=== PATIENT | female | born 1980 | race Caucasian/White ===

== ENCOUNTER 2019-04-12 22:57 | Emergency (ER) | payer BC, MEDICAID ==
[~2019-04-12] VITALS: Ht 190.5 cm; Wt 98.0 kg
[~2019-04-12 22:57] MED LIST: BENZTROPINE MESY1 MG PO; BUSPIRONE HCL10 MG PO; HALOPERIDOL5 MG PO; LAMOTRIGINE100 M1 PO; LATUDA40 M1 PO; LEXAPRO10 MG PO; MAC100 PO; VENTOLIN H0.09 MG/A1 IH
[2019-04-12 23:01] VITALS: Ht 190.5 cm; Wt 98.0 kg
[2019-04-13 02:12] LABS: BASOPHIL % 1.6 % (0-2); PLATELET COUNT 321 x10^3mcL (130-400)
[2019-04-13 02:14] LABS: RED CELL DISTRIBUTION WIDTH 14.9 % (11.5-14.5)
[2019-04-13 02:23] LABS: CALCIUM 8.6 mg/dL (8.5-10.1); CARBON DIOXIDE 30.1 mmol/L (21-32); CHLORIDE SERUM 108 mmol/L (98-107); CREATININE SERUM 0.6 mg/dL (0.6-1.0); GFR1 > 60 mL/min; GLUCOSE SERUM 106 mg/dL (74-106); POTASSIUM SERUM 3.7 mmol/L (3.5-5.1); SODIUM SERUM 145 mmol/L (136-145)
[2019-04-13 02:28] LABS: ALBUMIN 3.6 g/dL (3.4-5.0); ALKALINE PHOSPHATASE 55 U/L (46-116); ALT/SGPT 47 U/L (14-59); AST/SGOT 21 U/L (15-37); BILIRUBIN TOTAL 0.31 mg/dL (0.20-1.00); TOTAL PROTEIN, SERUM 6.9 g/dL (6.4-8.2)
[2019-04-13 03:20] VITALS: BP 108/66
== END 2019-04-13 03:20 | disposition home or self-care (01) ==
LOC: ED 22:57
PROVIDERS: Emergency Medicine
DX: Z00.8 Encounter for other general examination (principal); F20.9 Schizophrenia, unspecified; F31.9 Bipolar disorder, unspecified; J45.909 Unspecified asthma, uncomplicated; Z88.2 Allergy status to sulfonamides; Z88.8 Allergy status to other drugs, medicaments and biological substances
CPT/HCPCS: 36415

== ENCOUNTER 2019-04-20 22:53 | Emergency (ER) | payer BC, MEDICAID ==
[~2019-04-20] VITALS: Ht 190.5 cm; Wt 92.5 kg
[2019-04-20 22:57] VITALS: Ht 190.5 cm; Wt 92.5 kg
[2019-04-21 00:28] VITALS: BP 111/69
== END 2019-04-21 00:28 | disposition home or self-care (01) ==
LOC: ED 22:53
DX: J45.901 Unspecified asthma with (acute) exacerbation (principal); F20.9 Schizophrenia, unspecified; Z88.2 Allergy status to sulfonamides; Z88.8 Allergy status to other drugs, medicaments and biological substances
CPT/HCPCS: Q0092

== ENCOUNTER 2020-08-06 18:17 | Emergency (ER) | payer BC, MEDICAID ==
[~2020-08-06] VITALS: Ht 190.5 cm; Wt 85.3 kg
[2020-08-06 18:25] VITALS: Ht 190.5 cm; Wt 85.3 kg
[2020-08-06 19:20] LABS: BASOPHIL % 1.5 % (0.2-1.3); PLATELET COUNT 361 x10^3mcL (179-408); RED CELL DISTRIBUTION WIDTH 14.1 % (12.3-17.7)
[2020-08-06 19:36] LABS: CALCIUM 8.6 mg/dL (8.5-10.1); CARBON DIOXIDE 28.8 mmol/L (21-32); CHLORIDE SERUM 104 mmol/L (98-107); CREATININE SERUM 0.7 mg/dL (0.6-1.0); GFR1 > 60 mL/min; GLUCOSE SERUM 89 mg/dL (74-106); POTASSIUM SERUM 3.6 mmol/L (3.5-5.1); SODIUM SERUM 141 mmol/L (136-145)
[2020-08-06 19:39] LABS: ALBUMIN 3.7 g/dL (3.4-5.0); ALKALINE PHOSPHATASE 56 U/L (46-116); ALT/SGPT 22 U/L (14-59); AST/SGOT 15 U/L (15-37); BILIRUBIN TOTAL 0.4 mg/dL (0.20-1.00); TOTAL PROTEIN, SERUM 7.7 g/dL (6.4-8.2)
[2020-08-06 20:58] LABS: UA SPECIFIC GRAVITY 1.025 (1.005-1.035); microscopic required? YES; urine erythrocyte NEGATIVE (NEGATIVE)
[2020-08-06 21:14] LABS: AMPHETAMINE QUAL UR POSITIVE (See below)
[2020-08-07 05:51] VITALS: BP 93/54
== END 2020-08-07 06:55 | disposition home or self-care (01) ==
LOC: ED 18:17
PROVIDERS: Emergency Medicine
DX: F20.0 Paranoid schizophrenia (principal); F31.9 Bipolar disorder, unspecified; J45.909 Unspecified asthma, uncomplicated; G40.909 Epilepsy, unspecified, not intractable, without status epilepticus; F12.20 Cannabis dependence, uncomplicated; F15.20 Other stimulant dependence, uncomplicated; F17.210 Nicotine dependence, cigarettes, uncomplicated; Z20.822 Contact with and (suspected) exposure to COVID-19; Z59.0 Homelessness; Z88.8 Allergy status to other drugs, medicaments and biological substances; Z88.2 Allergy status to sulfonamides
CPT/HCPCS: 99406; G0480; U0003